=== PATIENT | female | born 1930 | race Caucasian/White ===

== ENCOUNTER 2017-03-24 14:52 | Inpatient (IN) | payer MEDICARE ==
--- NOTE | 2017-03-24 15:14 | ED Physician Chart ---
ED Chief Complaint/HPI - Patient Information Date Seen:: 03/24/17 Time Seen:: 15:09 Chief Complaint:: EDEMA History of Present Illness:: THIS IS A CHRONICALLY 87 YO FEMALE SENT FROM THE CARE HOME FOR AN EVALUATION AND TREATMENT OF HER EDEMA. SHE HAS HAD EDEMA FROM HER ABDOMEN DOWN TO BOTH FEET GREATER ON THE LEFT THAN HE RIGHT. SHE HAS A HISTORY OF ATRIAL FIB. SHE ALSO HAS MENTAL ILLNESS AND DEMENTIA. Allergies:: Allergies Allergy/AdvReac Type Severity Reaction Status Date / Time No Known Allergies Allergy Verified 03/24/17 14:53 Vitals:: Vital Signs - 8 hr 03/24/17 14:54 Temp 98.5 F HR 96 RR 17 BP 122/84 O2 Sat % 98 Historian:: EMS, Family Member, Medical Records Review:: Nurse's Note Reviewed, Old Chart Reviewed, Transfer documents Reviewed ED Review of Systems - Review of Systems General/Constitutional: No fever, No chills, No weight loss, No weakness, No diaphoresis, No edema, No loss of appetite, Other (THIS PATIENT IS UNABLE TO GIVE A REVIEW OF SYSTEMS.) Skin: No skin lesions, No rash, No bruising Head: No headache, No light-headedness Eyes: No loss of vision, No pain, No diplopia ENT: No earache, No nasal drainage, No sore throat, No tinnitus Neck: No neck pain, No swelling, No thyromegaly, No stiffness, No mass noted Cardio Vascular: No chest pain, No palpitations, No PND, No orthopnea, No edema Pulmonary: No SOB, No cough, No sputum, No wheezing GI: No nausea, No vomiting, No diarrhea, No pain, No melena, No hematochezia, No constipation, No hematemesis G/U: No dysuria, No frequency, No hematuria Musculoskeletal: No bone or joint pain, No back pain, No muscle pain Endocrine: No polyuria, No polydipsia Psychiatric: No prior psych history, No depression, No anxiety, No suicidal ideation Hematopoietic: No bruising, No lymphadenopathy Allergic/Immuno: No urticaria, No angioedema Neurological: No syncope, No focal symptoms, No weakness, No paresthesia, No headache, No seizure, No dizziness, No confusion, No vertigo ED Past Medical History - Past Medical History Obtainable: Yes Past Medical History: HTN, CAD, CHF, DVT/PE, Dementia, Other (COLON CA,) Family History: None Social History: Non Smoker, No Alcohol, No Drug Use, Care Facility Surgical History: Hysterectomy, other (COLON SURGERY) Family Medical History - Family Member Daughter History Unknown: Yes Hx Family Cancer: No Hx Family Coronary Artery Disease: No Hx Family Congestive Heart Failure: No Hx Family Hypertension: No Hx Family Stroke: No Hx Family Seizures: No Hx Family AIDS: No Hx Family HIV: No Hx Family COPD: No Hx Family Psychiatric Problems: No ED Physical Exam - Physical Examination General/Constitutional: Awake, Well-developed, well-nourished, Alert, No distress, GCS 15, Non-toxic appearing, Ambulatory Other Gen/Cons comments:: CONFUSED AND CANNOT TELL YOU HER AGE OR NAME Head: Atraumatic Eyes: Lids, conjuctiva normal, PERRL, EOMI Skin: Nl inspection, No rash, No skin lesions, No ecchymosis, Well hydrated, No lymphadenopathy ENMT: External ears, nose nl, Nasal exam nl, Lips, teeth, gums nl (POOR DENTAL REPAIR) Neck: Nontender, Full ROM w/o pain, No JVD, No nuchal rigidity, No bruit, No mass, No stridor Respiratory: Nl effort/Exclusion Other Respiratory comments:: BILATERAL RALES HEARD UP TO THE MID LUNG LEVEL Cardio Vascular: RRR (THE RATE AND RHYTM ARE IRREGULAR ), No murmur, gallop, rubs, NL S1 S2 GI: No tenderness/rebounding/guarding, No organomegaly, No hernia, Normal BS's, Nondistended, No mass/bruits, No McBurney tenderness : No CVA tenderness Extremities: No tenderness or effusion, Full ROM, normal strength in all extremities, Normal digits & nails Other Extremities comments:: BILATERAL 4+ EDEMA GREATER ON THE LEFT THAN THE RIGHT LOWER EXTREMITIES Neuro/Psych: DTR's symmetric, Normal sensory exam, Normal motor strength, Normal gait, No focal deficits Other Neuro/Psych comments:: SHE DISORIENTED TIMES FOUR AND IS CONFUSED Misc: Normal back, No paraspinal tenderness ED Labs/Radiology/EKG Results - Lab Results Results: Abnormal Lab Results 03/24/17 03/24/17 03/24/17 15:03 15:03 15:03 WBC 7.1 RBC 4.41 Hgb 13.5 Hct 41.4 MCV 93.9 MCH 30.6 MCHC Differential 32.6 RDW 15.9 Plt Count 135 L MPV 9.2 Neutrophils % 65.1 Lymphocytes % 23.8 Monocytes % 10.6 H Eosinophils % 0.4 Basophils % 0.1 PT 12.1 H INR 1.15 PTT (Actin FS) 22.7 L Specimen Source Sample Site pH pCO2 pO2 HCO3 Base Excess O2 Saturation Thanh Test Vent Rate Inspired O2 Tidal Volume PEEP Pressure (ins/psv/peep) Critical Value Sodium Potassium Chloride Carbon Dioxide Anion Gap BUN Creatinine Est GFR ( Amer) Est GFR (Non-Af Amer) BUN/Creatinine Ratio Glucose Calcium Total Bilirubin AST ALT Alkaline Phosphatase Troponin I B-Natriuretic Peptide Total Protein Albumin Globulin Albumin/Globulin Ratio Triglycerides 71 Cholesterol 134 LDL Cholesterol Direct 71 L HDL Cholesterol 56 Valproic Acid 03/24/17 03/24/17 03/24/17 15:03 15:09 15:09 WBC RBC Hgb Hct MCV MCH MCHC Differential RDW Plt Count MPV Neutrophils % Lymphocytes % Monocytes % Eosinophils % Basophils % PT INR PTT (Actin FS) Specimen Source Sample Site pH pCO2 pO2 HCO3 Base Excess O2 Saturation Thanh Test Vent Rate Inspired O2 Tidal Volume PEEP Pressure (ins/psv/peep) Critical Value Sodium 139 Potassium 4.5 Chloride 102 Carbon Dioxide 35.3 H Anion Gap 6.2 L BUN 21 Creatinine 0.6 Est GFR ( Amer) TNP Est GFR (Non-Af Amer) TNP BUN/Creatinine Ratio 35.0 Glucose 168 H Calcium 8.9 Total Bilirubin 0.7 AST 14 ALT 11 Alkaline Phosphatase 60 Troponin I 0.04 B-Natriuretic Peptide 506.0 H Total Protein 6.2 Albumin 3.8 Globulin 2.4 Albumin/Globulin Ratio 1.6 Triglycerides Cholesterol LDL Cholesterol Direct HDL Cholesterol Valproic Acid 03/24/17 03/24/17 15:09 15:20 WBC RBC Hgb Hct MCV MCH MCHC Differential RDW Plt Count MPV Neutrophils % Lymphocytes % Monocytes % Eosinophils % Basophils % PT INR PTT (Actin FS) Specimen Source Arterial Sample Site Left Radial pH 7.51 H pCO2 47.0 H pO2 69.0 L HCO3 34.9 H Base Excess 12.8 H O2 Saturation 95.0 Thanh Test YES Vent Rate NA Inspired O2 21 Tidal Volume NA PEEP NA Pressure (ins/psv/peep) NA Critical Value E.[place] Sodium Potassium Chloride Carbon Dioxide Anion Gap BUN Creatinine Est GFR ( Amer) Est GFR (Non-Af Amer) BUN/Creatinine Ratio Glucose Calcium Total Bilirubin AST ALT Alkaline Phosphatase Troponin I B-Natriuretic Peptide Total Protein Albumin Globulin Albumin/Globulin Ratio Triglycerides Cholesterol LDL Cholesterol Direct HDL Cholesterol Valproic Acid 64.6 - Radiology Results Results: CHEST X-RAY = CHF WITH BILATERAL PLEURAL EFFUSIONS AND CM. - EKG Interpretations EKG Time:: 15:02 Rate & Rhythm: RATE= 147, A FIB [place]: LEFT AXIS ED Assessment - Assessment General Assessment: CHF AND AF ED Septic Shock - . Is Septic Shock (SBP<90, OR Lactate>4 mmol\L) present?: No - <6hrs of presentation: Vital Signs: Vital Signs - 8 hr 03/24/17 14:54 Temp 98.5 F HR 96 RR 17 BP 122/84 O2 Sat % 98 ED Reassessment (Disposition) - Reassessment Reassessment Condition:: Improved - Diagnosis Diagnosis:: ATRIAL FIB WITH RAPID VENTICULAR RESPONSE CHF DEMENTIA - Patient Disposition Discharge/Transfer:: Acute Care w/in this hosp Admitted to:: Telemetry Admitting Medical Physician:: Lane Kaiser Condition at Disposition:: Improved ED Discharge Plan - Patient Disposition Admit/Discharge/Transfer: Acute Care w/in this hosp Condition at Disposition: Improved
[2017-03-24 15:16] LABS: % BASOPHILS 0.1 % (0.0-2.0); % EOSINOPHILS 0.4 % (0.0-5.0); % LYMPHOCYTES 23.8 % (20.0-50.0); % MONOCYTES 10.6 % (2.0-10.0); % NEUTROPHILS 65.1 % (40.0-80.0); HEMATOCRIT 41.4 % (41.0-60); HEMOGLOBIN 13.5 gm/dL (12-16); MEAN CELL VOLUME 93.9 fl (81-100); MEAN CORPUSCULAR HEMOGLOBIN 30.6 pg (27.0-31.0); MEAN CORPUSCULAR HGB CONC 32.6 pg (28.0-36.0); MEAN PLATELET VOLUME 9.2 fl; NEUTROPHILE ABSOLUTE 4.6 Th/cmm (1.8-8.0); PLATELET COUNT 135 Th/cmm (150-400); RED BLOOD COUNT 4.41 Mil/cmm (3.80-5.20); RED CELL DISTRIBUTION WIDTH 15.9 % (11.5-20.0); WHITE BLOOD COUNT 7.1 Th/cmm (4.8-10.8)
[2017-03-24] MEDS ORDERED: Diltiazem 5 mg/mL 5mL Vial IVP STA (15:21)
[2017-03-24] MEDS ORDERED: Diltiazem 5 mg/mL 5mL Vial IVP ONE (15:24)
[2017-03-24 15:30] LABS: ABG SOURCE Arterial; ALLEN TEST YES; BE(B) 12.8 mEq/L (-3.0-3.0); FIO2 21; HCO3 34.9 mEq/L (20.0-26.0); pH 7.51 (7.35-7.45)
[2017-03-24 15:33] LABS: INR 1.15 (0.5-1.4); PROTHROMBIN TIME (TEST) 12.1 SECONDS (9.5-11.5)
[2017-03-24 15:35] LABS: ALB/GLOB RATIO 1.6 (1.0-1.8); ALKALINE PHOSPHATASE 60 U/L (34-104); ANION GAP 6.2 (7.0-16.0); BILIRUBIN,TOTAL 0.7 mg/dL (0.3-1.0); BUN - UREA NITROGEN 21 mg/dL (7-25); CALCIUM SERUM 8.9 mg/dL (8.6-10.3); CARBON DIOXIDE 35.3 mEq/L (21.0-31.0); CHLORIDE 102 mEq/L (98-107); CREATININE - SERUM 0.6 mg/dL (0.6-1.2); GLUCOSE 168 mg/dL (70-105); POTASSIUM SERUM 4.5 mEq/L (3.5-5.1); SGOT 14 U/L (13-39); SGPT/ALT 11 U/L (7-52); SODIUM SERUM 139 mEq/L (136-145)
[2017-03-24 15:36] LABS: CHOLESTEROL 134 mg/dL (<200); TRIGLYCERIDES 71 mg/dL (<150)
--- NOTE | 2017-03-24 15:42 | Diagnostic Imaging Report ---
Portable chest x-ray HISTORY: Shortness of breath There is marked cardiomegaly. Atherosclerotic calcination seen in the aorta. Evidence of bilateral pleural effusions (left greater than right). There is a degree of pulmonary vascular redistribution consistent with an element of cardiac decompensation. Slight haziness of the lower interstitial lung markings. IMPRESSION: 1. Marked cardiomegaly with evidence of bilateral pleural effusions (left greater than right). Associated changes are consistent with a degree of congestive heart failure. Clinical correlation is needed.
[2017-03-24] MEDS ORDERED: Hydrocodone/APAP 5mg/325mg Tab PO PRN (16:41)
[2017-03-24] MEDS ORDERED: Morphine Sulfate 2 mg/mL 1mL Syr IVP PRN (16:42)
[2017-03-24 17:23] LABS: URINE BILIRUBIN NEGATIVE (NEGATIVE); URINE BLOOD TRACE (NEGATIVE); URINE GLUCOSE (UA) NEGATIVE (NEGATIVE); URINE KETONE NEGATIVE (NEGATIVE); URINE PROTEIN TRACE mg/dL (NEGATIVE)
[2017-03-24 17:27] LABS: URINE COLOR YELLOW
[2017-03-24 17:28] LABS: URINE AMORPHOUS SEDIMENT MODERATE URATES (NONE SEEN); URINE BACTERIA MANY /hpf (NONE SEEN); URINE EPITHELIAL CELLS FEW /lpf (FEW)
[2017-03-24 18:45] VITALS: BP 126/85
[2017-03-24] MEDS: Albuterol Nebulizer 2.5mg/3mL HHN SCH (19:07)
[2017-03-24] MEDS: Ipratropium Neb 0.5 mg/2.5 mL UD IH SCH (19:08)
[2017-03-24] MEDS: Diltiazem 5 mg/mL 5mL Vial IVP PRN (20:20)
[2017-03-25] MEDS: Diltiazem 5 mg/mL 5mL Vial IVP PRN ×2 (00:54→19:31)
[2017-03-25 05:10] LABS: ANION GAP 7.4 (7.0-16.0); BUN - UREA NITROGEN 19 mg/dL (7-25); BUN/CREATININE RATIO 31.7; CALCIUM SERUM 8.7 mg/dL (8.6-10.3); CARBON DIOXIDE 35.6 mEq/L (21.0-31.0); CHLORIDE 102 mEq/L (98-107); CREATININE - SERUM 0.6 mg/dL (0.6-1.2); GLUCOSE 176 mg/dL (70-105); MAGNESIUM 1.8 mg/dL (1.9-2.7); SODIUM SERUM 141 mEq/L (136-145)
[2017-03-25] MEDS: Albuterol Nebulizer 2.5mg/3mL HHN SCH ×4 (07:36→18:59)
[2017-03-25] MEDS: Ipratropium Neb 0.5 mg/2.5 mL UD IH SCH ×4 (07:36→19:00)
[2017-03-25] MEDS: Potassium Chloride 20 mEq ER Tab PO SCH (08:32)
[2017-03-25] MEDS ORDERED: Non-Formulary Item 1 EA (Potassium Chloride [Potassium Chloride] 1 CAP) PO SCH (09:00)
--- NOTE | 2017-03-25 11:22 | Internal Medicine Prog Note ---
Internal Medicine Subjective - Subjective Service Date: 03/25/17 (hn dictated [id number]) Internal Medicine Objective - Results Result Diagrams: 03/24/17 15:03 03/25/17 04:27 Recent Labs: Laboratory Last Values WBC 7.1 Th/cmm (4.8-10.8) 03/24/17 15:03 RBC 4.41 Mil/cmm (3.80-5.20) 03/24/17 15:03 Hgb 13.5 gm/dL (12-16) 03/24/17 15:03 Hct 41.4 % (41.0-60) 03/24/17 15:03 MCV 93.9 fl (81-100) 03/24/17 15:03 MCH 30.6 pg (27.0-31.0) 03/24/17 15:03 MCHC Differential 32.6 pg (28.0-36.0) 03/24/17 15:03 RDW 15.9 % (11.5-20.0) 03/24/17 15:03 Plt Count 135 Th/cmm (150-400) L 03/24/17 15:03 MPV 9.2 fl 03/24/17 15:03 Neutrophils % 65.1 % (40.0-80.0) 03/24/17 15:03 Lymphocytes % 23.8 % (20.0-50.0) 03/24/17 15:03 Monocytes % 10.6 % (2.0-10.0) H 03/24/17 15:03 Eosinophils % 0.4 % (0.0-5.0) 03/24/17 15:03 Basophils % 0.1 % (0.0-2.0) 03/24/17 15:03 PT 12.1 SECONDS (9.5-11.5) H 03/24/17 15:03 INR 1.15 (0.5-1.4) 03/24/17 15:03 PTT (Actin FS) 22.7 SECONDS (26.0-38.0) L 03/24/17 15:03 Specimen Source Arterial 03/24/17 15:20 Sample Site Left Radial 03/24/17 15:20 pH 7.51 (7.35-7.45) H 03/24/17 15:20 pCO2 47.0 mmHg (35.0-45.0) H 03/24/17 15:20 pO2 69.0 mmHg (80.0-100.0) L 03/24/17 15:20 HCO3 34.9 mEq/L (20.0-26.0) H 03/24/17 15:20 Base Excess 12.8 mEq/L (-3.0-3.0) H 03/24/17 15:20 O2 Saturation 95.0 % (92.0-100.0) 03/24/17 15:20 Thanh Test YES 03/24/17 15:20 Vent Rate NA 03/24/17 15:20 Inspired O2 21 03/24/17 15:20 Tidal Volume NA 03/24/17 15:20 PEEP NA 03/24/17 15:20 Pressure (ins/psv/peep) NA 03/24/17 15:20 Critical Value E.[place] 03/24/17 15:20 Sodium 141 mEq/L (136-145) 03/25/17 04:27 Potassium 4.0 mEq/L (3.5-5.1) 03/25/17 04:27 Chloride 102 mEq/L (98-107) 03/25/17 04:27 Carbon Dioxide 35.6 mEq/L (21.0-31.0) H 03/25/17 04:27 Anion Gap 7.4 (7.0-16.0) 03/25/17 04:27 BUN 19 mg/dL (7-25) 03/25/17 04:27 Creatinine 0.6 mg/dL (0.6-1.2) 03/25/17 04:27 Est GFR ( Amer) TNP 03/25/17 04:27 Est GFR (Non-Af Amer) TNP 03/25/17 04:27 BUN/Creatinine Ratio 31.7 03/25/17 04:27 Glucose 176 mg/dL (70-105) H 03/25/17 04:27 Hemoglobin A1c % 7.0 % (4.0-6.0) H 03/24/17 15:03 Calcium 8.7 mg/dL (8.6-10.3) 03/25/17 04:27 Magnesium 1.8 mg/dL (1.9-2.7) L 03/25/17 04:27 Total Bilirubin 0.7 mg/dL (0.3-1.0) 03/24/17 15:09 AST 14 U/L (13-39) 03/24/17 15:09 ALT 11 U/L (7-52) 03/24/17 15:09 Alkaline Phosphatase 60 U/L (34-104) 03/24/17 15:09 Ammonia 42 umol/L (16-53) 03/25/17 04:27 Troponin I 0.04 ng/mL (0.01-0.05) 03/24/17 15:09 B-Natriuretic Peptide 506.0 pg/mL (5.0-100.0) H 03/24/17 15:03 Total Protein 6.2 gm/dL (6.0-8.3) 03/24/17 15:09 Albumin 3.8 gm/dL (3.7-5.3) 03/24/17 15:09 Globulin 2.4 gm/dL 03/24/17 15:09 Albumin/Globulin Ratio 1.6 (1.0-1.8) 03/24/17 15:09 Triglycerides 71 mg/dL (<150) 03/24/17 15:03 Cholesterol 134 mg/dL (<200) 03/24/17 15:03 LDL Cholesterol Direct 71 mg/dL (75-193) L 03/24/17 15:03 HDL Cholesterol 56 mg/dL (23-92) 03/24/17 15:03 TSH 5.07 uIU/ml (0.34-5.60) 03/24/17 15:09 Urine Source CLEAN C 03/24/17 16:15 Urine Color YELLOW 03/24/17 16:15 Urine Clarity CLOUDY (CLEAR) H 03/24/17 16:15 Urine pH 7.0 (4.6 - 8.0) 03/24/17 16:15 Ur Specific [place] 1.015 (1.005-1.030) 03/24/17 16:15 Urine Protein TRACE mg/dL (NEGATIVE) 03/24/17 16:15 Urine Glucose (UA) NEGATIVE mg/dL (NEGATIVE) 03/24/17 16:15 Urine Ketones NEGATIVE mg/dL (NEGATIVE) 03/24/17 16:15 Urine Blood TRACE (NEGATIVE) 03/24/17 16:15 Urine Nitrate POSITIVE (NEGATIVE) H 03/24/17 16:15 Urine Bilirubin NEGATIVE (NEGATIVE) 03/24/17 16:15 Urine Urobilinogen 1.0 E.U./dL (0.2 - 1.0) 03/24/17 16:15 Ur Leukocyte Esterase MODERATE (NEGATIVE) H 03/24/17 16:15 Urine RBC 2-5 /hpf (0-5) 03/24/17 16:15 Urine WBC 6-10 /hpf (0-5) H 03/24/17 16:15 Ur Epithelial Cells FEW /lpf (FEW) 03/24/17 16:15 Amorphous Sediment MODERATE URATES (NONE SEEN) 03/24/17 16:15 Urine Bacteria MANY /hpf (NONE SEEN) 03/24/17 16:15 Valproic Acid 64.6 ug/mL (50.0-100.0) 03/24/17 15:09 RPR NONREACTIVE (NONREACTIVE) 03/24/17 15:09 - Physical Exam Vitals and I&O: Vital Signs Temp 98.6 F 03/25/17 09:00 Pulse 87 03/25/17 09:00 Resp 18 03/25/17 09:00 BP 108/72 03/25/17 09:00 Pulse Ox 96 03/25/17 09:00 Intake & Output 03/24/17 03/25/17 03/25/17 18:59 06:59 18:59 Intake Total 370 Output Total 2280 Balance -1910 Weight (lbs) 187 lb 187 lb Intake: Oral 370 Output: Urine 2280 Other: # Bowel Movements 0 Active Medications: Current Medications Acetaminophen (Tylenol) 650 mg PO Q4HR PRN PRN Reason: Pain (Mild) Stop: 05/23/17 16:40 Acetaminophen/Hydrocodone Bitart ([place] 5mg/325mg) 1 tab PO TID PRN PRN Reason: Pain (Moderate) Stop: 05/23/17 16:40 Last Admin: 03/25/17 01:22 Dose: 1 tab Albuterol Sulfate (Albuterol 2.5mg/3ml Neb Ud) 2.5 mg HHN QIDRT [facility] Stop: 05/23/17 18:59 Last Admin: 03/25/17 10:55 Dose: 2.5 mg Aspirin (Ecotrin) 81 mg PO DAILY [facility] Stop: 05/24/17 08:59 Last Admin: 03/25/17 08:32 Dose: 81 mg Diltiazem HCl (Cardizem) 10 mg IVP Q4H PRN PRN Reason: HR Greater than 130 per min Stop: 05/23/17 16:41 Last Admin: 03/25/17 00:54 Dose: 10 mg Furosemide (Lasix) 40 mg IVP BID [facility] Stop: 05/23/17 16:59 Last Admin: 03/25/17 08:31 Dose: 40 mg Haloperidol (Haldol) 2 mg PO Q6HR PRN; Protocol PRN Reason: Agitation Stop: 05/23/17 16:40 Heparin Sodium (Porcine) (Heparin) 5,000 units SUBQ Q12HR [facility] Stop: 05/23/17 20:59 Last Admin: 03/25/17 08:33 Dose: 5,000 units Ipratropium [place] (Atrovent Neb 0.5mg/2.5ml) 0.5 mg IH QIDRT [facility] Stop: 05/23/17 18:59 Last Admin: 03/25/17 10:55 Dose: 0.5 mg Morphine Sulfate (Morphine) 2 mg IVP Q4H PRN PRN Reason: Severe Pain Stop: 05/23/17 16:41 Last Admin: 03/24/17 21:26 Dose: 2 mg Ondansetron HCl (Zofran) 4 mg IV Q8H PRN PRN Reason: Nausea / Vomiting Stop: 05/23/17 16:41 Potassium Chloride (Klor-Con) 20 meq PO DAILY [facility] Stop: 05/24/17 08:59 Last Admin: 03/25/17 08:32 Dose: 20 meq Quetiapine Fumarate (Seroquel) 25 mg PO BID [facility] PRN Reason: Protocol Stop: 05/24/17 08:59 Senna (Senna) 8.6 mg PO BID [facility] Stop: 05/23/17 16:59 Last Admin: 03/25/17 08:32 Dose: 8.6 mg Valproate Sodium (Depakene) 500 mg PO TID [facility] Stop: 05/23/17 20:59 Internal Medicine Assmt/Plan - Assessment Assessment: ACUTE CHF EXACERBATION DEMENTIA HTN HYPOMAGNESEMIA A-FIB WITH RAPID VENTRICULAR RESPONSE ACUTE UTI HX COLON CA
[2017-03-25] MEDS: cefTRIAXone 1 GM in Sodium Chloride 0.9% 50 ML IV SCH (11:46)
--- NOTE | 2017-03-25 12:12 | History & Physical ---
ADMIT DATE: 03/25/2017 CHIEF COMPLAINT: Bilateral lower extremity edema. HISTORY OF PRESENT ILLNESS: This is an 87-year-old female who is a resident of [facility], who is brought here to [facility] for evaluation and treatment of bilateral lower extremity edema. The patient is a poor historian. PAST MEDICAL HISTORY: Colon cancer, status post resection, dementia, hypertension, lymphoma, status post excision and chemotherapy, chronic AFib, recurrent falls, GI bleed, CHF. PAST SURGICAL HISTORY: Hysterectomy, colon cancer resection, lymphoma excision. FAMILY HISTORY: Noncontributory. REVIEW OF SYSTEMS: Unable to obtain due to patient's mental status. ALLERGIES: No drug allergies. MEDICATIONS: Haldol, Tylenol, morphine, Lasix, Zyprexa, hydrocodone, potassium chloride, Senna, and valproic acid. LABORATORY DATA: WBC 7.1, H and H 13.5 and 41.4, platelet of 135. PT 12.1, INR 1.15, PTT 22.7. ABG, pH 7.51, CO2 of 47.0, pO2 69.0, bicarb 34.9, O2 sat of 95%. Sodium 141, potassium 4.0, chloride 102, carbon dioxide 35.6, BUN 19, creatinine 0.6, hemoglobin A1c is 7.0, magnesium 1.8. BNP of 506. The patient had a urinalysis done. The patient is positive for UTI. The patient had a chest x-ray done in the ER and the impression is marked cardiomegaly with evidence of bilateral pleural effusions, ____ greater than ____, associated changes consistent with the degrees of congestive heart failure, clinical correlation is needed. ASSESSMENT: Acute congestive heart failure exacerbation, atrial fibrillation with rapid ventricular response, hypertension, dementia, history of colon cancer, hypomagnesemia, type 2 diabetes, acute urinary tract infection. PLAN: The patient to be admitted to the ICU unit. The patient will have a Cardiology consult. We will get bilateral lower extremity venous Doppler done to rule out any DVT, 2D echocardiogram as ordered by Cardiology. We will continue patient on IV Lasix. Monitor patient's electrolytes level. We will continue to follow this patient. [facility]# [id number]
[2017-03-25] MEDS ORDERED: Mag Sulfate 2gm/50mL Premix 2 GM/50 ML BAG IV ONE (15:32)
--- NOTE | 2017-03-25 20:15 | Consultation ---
DATE OF CONSULTATION: 03/25/2017 HISTORY OF PRESENT ILLNESS: This is an 87-year-old female with rapid ventricular response, AFib, currently confused, disoriented, really does not know what is going on. Staff noting that she has been needing Haldol p.r.n., but it is not helping. The patient states that she is in distress and it does not feel good. PAST PSYCHIATRIC HISTORY: Unclear. FAMILY HISTORY: Unclear. SOCIAL HISTORY: The patient is coming from a alf. Daughter involved. MEDICATIONS: Reviewed. PAST MEDICAL HISTORY: Please see full H and P. MENTAL STATUS EXAMINATION: Stated age. Fair eye contact. Psychomotorically restless. Mood is "okay." Thought processes were confused, disoriented. No overt SI or HI. Unclear psychotic symptoms, poor impulse control. PROVISIONAL DIAGNOSIS: Psychosis, unspecified, likely delirium. Mood, unspecified. Anxiety, unspecified. MEDICAL DIAGNOSIS: Please see full H and P. PLAN: We will reach out to daughter. We will switch her from Haldol to Seroquel. We will continue to monitor and follow up. Also recommend more judicious use of opiates. The patient is currently on Zyprexa. We will discharge this in favor of Seroquel. [facility]# [id number]
[2017-03-26 05:24] LABS: % BASOPHILS 0.8 % (0.0-2.0); % EOSINOPHILS 1.7 % (0.0-5.0); % LYMPHOCYTES 41.8 % (20.0-50.0); % MONOCYTES 12.9 % (2.0-10.0); % NEUTROPHILS 42.8 % (40.0-80.0); HEMATOCRIT 40.5 % (41.0-60); HEMOGLOBIN 13.1 gm/dL (12-16); MEAN CELL VOLUME 94.6 fl (81-100); MEAN CORPUSCULAR HEMOGLOBIN 30.6 pg (27.0-31.0); MEAN CORPUSCULAR HGB CONC 32.4 pg (28.0-36.0); MEAN PLATELET VOLUME 9.3 fl; NEUTROPHILE ABSOLUTE 2.4 Th/cmm (1.8-8.0); PLATELET COUNT 127 Th/cmm (150-400); RED BLOOD COUNT 4.28 Mil/cmm (3.80-5.20); RED CELL DISTRIBUTION WIDTH 15.7 % (11.5-20.0)
[2017-03-26 05:37] LABS: WHITE BLOOD COUNT 5.5 Th/cmm (4.8-10.8)
[2017-03-26 05:49] LABS: ANION GAP 5.5 (7.0-16.0); BUN - UREA NITROGEN 18 mg/dL (7-25); CALCIUM SERUM 8.6 mg/dL (8.6-10.3); CARBON DIOXIDE 39.8 mEq/L (21.0-31.0); CHLORIDE 102 mEq/L (98-107); CHOLESTEROL 113 mg/dL (<200); CREATININE - SERUM 0.6 mg/dL (0.6-1.2); GLUCOSE 76 mg/dL (70-105); POTASSIUM SERUM 4.3 mEq/L (3.5-5.1); SODIUM SERUM 143 mEq/L (136-145); TRIGLYCERIDES 59 mg/dL (<150)
[2017-03-26] MEDS: Ipratropium Neb 0.5 mg/2.5 mL UD IH SCH ×4 (07:38→18:56)
[2017-03-26] MEDS: Albuterol Nebulizer 2.5mg/3mL HHN SCH ×4 (07:38→18:56)
[2017-03-26] MEDS: Potassium Chloride 20 mEq ER Tab PO SCH (09:20)
[2017-03-26] MEDS: Diltiazem 5 mg/mL 5mL Vial IVP PRN ×2 (10:09→16:48)
--- NOTE | 2017-03-26 10:14 | Diagnostic Imaging Report ---
Exam: Ultrasound examination deep venous circulation lower extremity bilaterally. HISTORY: Bilateral lower leg swelling Findings: Real-time ultrasound examination of the deep venous circulation lower extremities bilaterally was performed utilizing color Doppler technique. The study demonstrates deep venous thrombosis of the right common femoral vein. The right superficial femoral vein and popliteal vein and the vessel does evocation are normal compressibility and. The left lower extremity demonstrates no evidence of deep venous thrombosis with normal segmentation compressibility throughout. IMPRESSION: Diffuse thrombosis right common femoral vein, the nurses station was notified of findings.
[2017-03-26] MEDS: cefTRIAXone 1 GM in Sodium Chloride 0.9% 50 ML IV SCH (11:30)
[2017-03-26] MEDS ORDERED: Probiotic Screen MC PRN (13:15)
--- NOTE | 2017-03-26 17:13 | Internal Medicine Prog Note ---
Internal Medicine Subjective - Subjective Service Date: 03/26/17 Internal Medicine Objective - Results Result Diagrams: 03/26/17 05:00 03/26/17 05:00 Recent Labs: Laboratory Last Values WBC 5.5 Th/cmm (4.8-10.8) D 03/26/17 05:00 RBC 4.28 Mil/cmm (3.80-5.20) 03/26/17 05:00 Hgb 13.1 gm/dL (12-16) 03/26/17 05:00 Hct 40.5 % (41.0-60) L 03/26/17 05:00 MCV 94.6 fl (81-100) 03/26/17 05:00 MCH 30.6 pg (27.0-31.0) 03/26/17 05:00 MCHC Differential 32.4 pg (28.0-36.0) 03/26/17 05:00 RDW 15.7 % (11.5-20.0) 03/26/17 05:00 Plt Count 127 Th/cmm (150-400) L 03/26/17 05:00 MPV 9.3 fl 03/26/17 05:00 Neutrophils % 42.8 % (40.0-80.0) 03/26/17 05:00 Lymphocytes % 41.8 % (20.0-50.0) 03/26/17 05:00 Monocytes % 12.9 % (2.0-10.0) H 03/26/17 05:00 Eosinophils % 1.7 % (0.0-5.0) 03/26/17 05:00 Basophils % 0.8 % (0.0-2.0) 03/26/17 05:00 PT 12.1 SECONDS (9.5-11.5) H 03/24/17 15:03 INR 1.15 (0.5-1.4) 03/24/17 15:03 PTT (Actin FS) 22.7 SECONDS (26.0-38.0) L 03/24/17 15:03 Specimen Source Arterial 03/24/17 15:20 Sample Site Left Radial 03/24/17 15:20 pH 7.51 (7.35-7.45) H 03/24/17 15:20 pCO2 47.0 mmHg (35.0-45.0) H 03/24/17 15:20 pO2 69.0 mmHg (80.0-100.0) L 03/24/17 15:20 HCO3 34.9 mEq/L (20.0-26.0) H 03/24/17 15:20 Base Excess 12.8 mEq/L (-3.0-3.0) H 03/24/17 15:20 O2 Saturation 95.0 % (92.0-100.0) 03/24/17 15:20 Thanh Test YES 03/24/17 15:20 Vent Rate NA 03/24/17 15:20 Inspired O2 21 03/24/17 15:20 Tidal Volume NA 03/24/17 15:20 PEEP NA 03/24/17 15:20 Pressure (ins/psv/peep) NA 03/24/17 15:20 Critical Value E.HAMPTON 03/24/17 15:20 Sodium 143 mEq/L (136-145) 03/26/17 05:00 Potassium 4.3 mEq/L (3.5-5.1) 03/26/17 05:00 Chloride 102 mEq/L (98-107) 03/26/17 05:00 Carbon Dioxide 39.8 mEq/L (21.0-31.0) H 03/26/17 05:00 Anion Gap 5.5 (7.0-16.0) L 03/26/17 05:00 BUN 18 mg/dL (7-25) 03/26/17 05:00 Creatinine 0.6 mg/dL (0.6-1.2) 03/26/17 05:00 Est GFR ( Amer) TNP 03/26/17 05:00 Est GFR (Non-Af Amer) TNP 03/26/17 05:00 BUN/Creatinine Ratio 30.0 03/26/17 05:00 Glucose 76 mg/dL (70-105) 03/26/17 05:00 Hemoglobin A1c % 7.0 % (4.0-6.0) H 03/24/17 15:03 Calcium 8.6 mg/dL (8.6-10.3) 03/26/17 05:00 Magnesium 1.8 mg/dL (1.9-2.7) L 03/25/17 04:27 Total Bilirubin 0.7 mg/dL (0.3-1.0) 03/24/17 15:09 AST 14 U/L (13-39) 03/24/17 15:09 ALT 11 U/L (7-52) 03/24/17 15:09 Alkaline Phosphatase 60 U/L (34-104) 03/24/17 15:09 Ammonia 42 umol/L (16-53) 03/25/17 04:27 Troponin I 0.04 ng/mL (0.01-0.05) 03/24/17 15:09 B-Natriuretic Peptide 429.0 pg/mL (5.0-100.0) H 03/26/17 05:00 Total Protein 6.2 gm/dL (6.0-8.3) 03/24/17 15:09 Albumin 3.8 gm/dL (3.7-5.3) 03/24/17 15:09 Globulin 2.4 gm/dL 03/24/17 15:09 Albumin/Globulin Ratio 1.6 (1.0-1.8) 03/24/17 15:09 Triglycerides 59 mg/dL (<150) 03/26/17 05:00 Cholesterol 113 mg/dL (<200) 03/26/17 05:00 LDL Cholesterol Direct 69 mg/dL (75-193) L 03/26/17 05:00 HDL Cholesterol 47 mg/dL (23-92) 03/26/17 05:00 TSH 5.07 uIU/ml (0.34-5.60) 03/24/17 15:09 Urine Source CLEAN C 03/24/17 16:15 Urine Color YELLOW 03/24/17 16:15 Urine Clarity CLOUDY (CLEAR) H 03/24/17 16:15 Urine pH 7.0 (4.6 - 8.0) 03/24/17 16:15 Ur Specific [place] 1.015 (1.005-1.030) 03/24/17 16:15 Urine Protein TRACE mg/dL (NEGATIVE) 03/24/17 16:15 Urine Glucose (UA) NEGATIVE mg/dL (NEGATIVE) 03/24/17 16:15 Urine Ketones NEGATIVE mg/dL (NEGATIVE) 03/24/17 16:15 Urine Blood TRACE (NEGATIVE) 03/24/17 16:15 Urine Nitrate POSITIVE (NEGATIVE) H 03/24/17 16:15 Urine Bilirubin NEGATIVE (NEGATIVE) 03/24/17 16:15 Urine Urobilinogen 1.0 E.U./dL (0.2 - 1.0) 03/24/17 16:15 Ur Leukocyte Esterase MODERATE (NEGATIVE) H 03/24/17 16:15 Urine RBC 2-5 /hpf (0-5) 03/24/17 16:15 Urine WBC 6-10 /hpf (0-5) H 03/24/17 16:15 Ur Epithelial Cells FEW /lpf (FEW) 03/24/17 16:15 Amorphous Sediment MODERATE URATES (NONE SEEN) 03/24/17 16:15 Urine Bacteria MANY /hpf (NONE SEEN) 03/24/17 16:15 Valproic Acid 64.6 ug/mL (50.0-100.0) 03/24/17 15:09 RPR NONREACTIVE (NONREACTIVE) 03/24/17 15:09 - Physical Exam Vitals and I&O: Vital Signs Temp 97.4 F 03/26/17 13:00 Pulse 150 03/26/17 16:48 Resp 22 03/26/17 15:05 BP 111/67 03/26/17 15:00 Pulse Ox 96 03/26/17 15:05 Intake & Output 03/25/17 03/26/17 03/26/17 18:59 06:59 18:59 Intake Total 410.000 100 50 Output Total 1500 850 Balance -1090.000 -750 50 Weight (lbs) 187 lb 185 lb Intake: Intake, IV Amount 50.000 50 cefTRIAXone 1 gm In 50.000 50 Sodium Chloride 0.9% 50 ml @ 100 mls/hr IV Q24HR [facility] Rx#:[id number] Oral 360 100 Output: Urine 1500 850 Stool 0 Active Medications: Current Medications Acetaminophen (Tylenol) 650 mg PO Q4HR PRN PRN Reason: Pain (Mild) Stop: 05/23/17 16:40 Last Admin: 03/25/17 20:38 Dose: 650 mg Acetaminophen/Hydrocodone Bitart ([place] 5mg/325mg) 1 tab PO TID PRN PRN Reason: Pain (Moderate) Stop: 05/23/17 16:40 Last Admin: 03/25/17 01:22 Dose: 1 tab Albuterol Sulfate (Albuterol 2.5mg/3ml Neb Ud) 2.5 mg HHN QIDRT [facility] Stop: 05/23/17 18:59 Last Admin: 03/26/17 15:03 Dose: 2.5 mg Aspirin (Ecotrin) 81 mg PO DAILY [facility] Stop: 05/24/17 08:59 Last Admin: 03/26/17 09:20 Dose: 81 mg Diltiazem HCl (Cardizem) 10 mg IVP Q4H PRN PRN Reason: HR Greater than 130 per min Stop: 05/23/17 16:41 Last Admin: 03/26/17 16:48 Dose: 10 mg Diltiazem HCl (Cardizem) 30 mg PO Q6HR [facility] Stop: 05/25/17 17:59 Furosemide (Lasix) 40 mg IVP DAILY [facility] Stop: 05/25/17 08:59 Last Admin: 03/26/17 09:20 Dose: 40 mg Haloperidol (Haldol) 2 mg PO Q6HR PRN; Protocol PRN Reason: Agitation Stop: 05/23/17 16:40 Last Admin: 03/26/17 15:09 Dose: 2 mg Heparin Sodium (Porcine) (Heparin) 5,000 units SUBQ Q12HR [facility] Stop: 05/23/17 20:59 Last Admin: 03/26/17 09:20 Dose: 5,000 units Ceftriaxone Sodium 1 gm/ (Sodium Chloride) 50 mls @ 100 mls/hr IV Q24HR [facility] Stop: 05/24/17 11:29 Last Infusion: 03/26/17 12:30 Dose: Infused Ipratropium [place] (Atrovent Neb 0.5mg/2.5ml) 0.5 mg IH QIDRT [facility] Stop: 05/23/17 18:59 Last Admin: 03/26/17 15:03 Dose: 0.5 mg Lactobacillus Rhamnosus (Culturelle) 1 each PO DAILY [facility] Stop: 05/26/17 08:59 Miscellaneous (Probiotic Screen) 1 ea MC PRN PRN PRN Reason: PROTOCOL Stop: 05/25/17 13:14 Morphine Sulfate (Morphine) 2 mg IVP Q4H PRN PRN Reason: Severe Pain Stop: 05/23/17 16:41 Last Admin: 03/24/17 21:26 Dose: 2 mg Ondansetron HCl (Zofran) 4 mg IV Q8H PRN PRN Reason: Nausea / Vomiting Stop: 05/23/17 16:41 Potassium Chloride (Klor-Con) 20 meq PO DAILY [facility] Stop: 05/24/17 08:59 Last Admin: 03/26/17 09:20 Dose: 20 meq Quetiapine Fumarate (Seroquel) 25 mg PO BID [facility] PRN Reason: Protocol Stop: 05/24/17 08:59 Last Admin: 03/26/17 09:20 Dose: 25 mg Rivaroxaban (Xarelto) 20 mg PO DAILY [facility] Stop: 05/26/17 08:59 Senna (Senna) 8.6 mg PO BID [facility] Stop: 05/23/17 16:59 Last Admin: 03/26/17 09:19 Dose: 8.6 mg Valproate Sodium (Depakene) 250 mg PO TID [facility] Stop: 05/23/17 20:59 Last Admin: 03/26/17 14:46 Dose: 250 mg Internal Medicine Assmt/Plan - Assessment Assessment: RIGHT LOWER EXTREMITY DVT ACUTE CHF EXACERBATION DEMENTIA HTN HYPOMAGNESEMIA A-FIB WITH RAPID VENTRICULAR RESPONSE ACUTE UTI HX COLON CA - Plan Plan: CONTINUE WITH HEPARIN ICU MONITORING DIURESE AM LABS CARDIO F/U CONTINUE CURRENT TREATMENT
[2017-03-26] MEDS: Diltiazem 30 mg Tab PO SCH ×2 (17:54→23:50)
--- NOTE | 2017-03-26 18:20 | Cardiology ---
03/25/[address] Kaiser. M-MODE ECHOCARDIOGRAM: Mitral valve, anterior leaflet of mitral valve shows decreased excursion, EF velocity. Posterior leaflet of mitral valve shows decreased excursion. Left ventricle posterior wall shows increased thickness, normal excursion. Interventricular septum shows increased thickness, normal excursion, hypertrophy of the left ventricle, ejection fraction 25%. Left atrium enlarged 5.5 cm. Aortic root showed normal dimension, sclerosis of aortic leaflets. CONCLUSION: Left atrial enlargement, sclerosis of aortic leaflets, cardiomyopathy, ejection fraction 25%, hypertrophy of the left ventricle. 2D ECHO: Long axis view shows enlarged left ventricular cavity with decreased ejection fraction. Mitral valve shows decreased excursion, left atrium enlarged, aortic root shows normal dimensions, sclerosis of aortic leaflets, normal excursion. Short axis view of mitral valve normal. Short axis view of aortic valve shows sclerosis of aortic leaflets, normal excursion. Apical four chamber view shows enlarged left ventricular cavity with decreased ejection fraction, hypertrophy of the left ventricle. Left atrium enlarged 5.5 cm. Right ventricular cavity, right atrium normal. CONCLUSION: Left atrial enlargement, right atrial enlargement, hypertrophy of the left ventricle, cardiomyopathy, ejection fraction 25%, sclerosis of aortic leaflet. Doppler study shows prominent A wave consistent with poor compliance of left ventricle. Moderate mitral regurgitation, moderate triscuspid regurgitation, mild aortic regurgitation, mild pulmonary regurgitation, moderate pulmonary hypertension, right ventricular systolic pressure 58 mmHg, pleural effusion. JOB# [id number]
--- NOTE | 2017-03-26 22:21 | Consultation ---
DATE OF CONSULTATION: 03/26/[address] Kaiser. HISTORY AND PHYSICAL: This is an 87-year-old female patient who was brought to the Emergency Room from [facility] because of shortness of breath, swelling in both lower extremities. No history of chest pain. The patient is confused and dementia. PAST MEDICAL HISTORY: The patient has a history of colon cancer status post resection, dementia, hypertension, lymphoma with excision and chemotherapy, chronic atrial fibrillation, congestive heart failure, cardiomyopathy, moderate pulmonary hypertension, psychosis, and diabetes mellitus type 2. FAMILY HISTORY: Unremarkable. SOCIAL HISTORY: No history of smoking, alcohol abuse. ALLERGIES: No known allergies. PHYSICAL EXAMINATION: VITAL SIGNS: Blood pressure 130/80, pulse 120 irregular, and respirations 28. HEAD: Normocephalic. No lumps or bumps. EYES: Pupils are equal and reactive to light. Fundi show AV nicking, sclerae white, conjunctivae pink. NECK: Carotid 2+. Normal upstroke. JVD 10 cm above the sternal angle. Thyroid not palpable. Lymph nodes not palpable. CHEST: Shows increased AP diameter. No kyphosis or scoliosis. LUNGS: Bilateral rales. Decreased breath sounds in both the bases. HEART: PMI sixth intercostal space with lateral to midclavicular line. S1, S2, S3, S4. S1 irregular. Systolic murmur, grade 3/6, lower left sternal border radiating to left axilla. ABDOMEN: Soft. Liver and spleen not palpable. No organomegaly. Hepatojugular reflux positive. EXTREMITIES: Peripheral pulses feeble. Bilateral pedal edema. IMAGING: The patient also had an echocardiogram which showed left atrial enlargement, right atrial enlargement, ejection fraction 25%, moderate mitral regurgitation, moderate tricuspid regurgitation, moderate pulmonary hypertension, right ventricular systolic pressure of 58 mmHg, and pleural effusion. DIAGNOSES: Congestive heart failure, systolic dysfunction, acute atrial fibrillation, rate uncontrolled, bilateral pleural effusion, diabetes mellitus type 2, dementia, hypomagnesium, nonischemic cardiomyopathy, moderate pulmonary hypertension, right leg DVT, psychosis, colon cancer status post resection, lymphoma status post chemotherapy. PLAN: We will start the patient on diuretics, preload and afterload reduction, continue anticoagulation and control the heart rate. [facility]# [id number]
[2017-03-27 06:21] LABS: % BASOPHILS 0.7 % (0.0-2.0); % EOSINOPHILS 1.8 % (0.0-5.0); % LYMPHOCYTES 31.2 % (20.0-50.0); % MONOCYTES 13.5 % (2.0-10.0); % NEUTROPHILS 52.8 % (40.0-80.0); HEMATOCRIT 37.9 % (41.0-60); HEMOGLOBIN 12.5 gm/dL (12-16); MEAN CELL VOLUME 93.2 fl (81-100); MEAN CORPUSCULAR HEMOGLOBIN 30.8 pg (27.0-31.0); MEAN CORPUSCULAR HGB CONC 33.1 pg (28.0-36.0); MEAN PLATELET VOLUME 8.7 fl; NEUTROPHILE ABSOLUTE 2.9 Th/cmm (1.8-8.0); PLATELET COUNT 127 Th/cmm (150-400); RED BLOOD COUNT 4.07 Mil/cmm (3.80-5.20); RED CELL DISTRIBUTION WIDTH 15.4 % (11.5-20.0); WHITE BLOOD COUNT 5.4 Th/cmm (4.8-10.8)
[2017-03-27 06:50] LABS: ANION GAP 5.2 (7.0-16.0); BUN - UREA NITROGEN 19 mg/dL (7-25); BUN/CREATININE RATIO 31.7; CALCIUM SERUM 8.4 mg/dL (8.6-10.3); CHLORIDE 99 mEq/L (98-107); CREATININE - SERUM 0.6 mg/dL (0.6-1.2); GLUCOSE 87 mg/dL (70-105); POTASSIUM SERUM 3.6 mEq/L (3.5-5.1); SODIUM SERUM 141 mEq/L (136-145)
[2017-03-27 06:51] LABS: CARBON DIOXIDE 40.4 mEq/L (21.0-31.0)
[2017-03-27] MEDS: Diltiazem 30 mg Tab PO SCH ×3 (06:57→17:19)
[2017-03-27] MEDS: Ipratropium Neb 0.5 mg/2.5 mL UD IH SCH ×4 (07:12→19:25)
[2017-03-27] MEDS: Albuterol Nebulizer 2.5mg/3mL HHN SCH ×4 (07:12→19:25)
[2017-03-27] MEDS: Potassium Chloride 20 mEq ER Tab PO SCH (08:48)
[2017-03-27] MEDS: Lactobacillus Rhamnosus 10 Billion CFU Capsule PO SCH (08:50)
[2017-03-27] MEDS ORDERED: Morphine Sulfate 4 mg/mL 1mL Syr IVP PRN (10:07)
[2017-03-27] MEDS: cefTRIAXone 1 GM in Sodium Chloride 0.9% 50 ML IV SCH (11:19)
--- NOTE | 2017-03-27 19:41 | Internal Medicine Prog Note ---
Internal Medicine Subjective - Subjective Service Date: 03/27/17 Patient seen and examined:: with staff Patient is:: awake, agitated, confused Per staff patient has:: no adverse event Internal Medicine Objective - Results Result Diagrams: 03/27/17 06:10 03/27/17 06:10 Recent Labs: Laboratory Last Values WBC 5.4 Th/cmm (4.8-10.8) 03/27/17 06:10 RBC 4.07 Mil/cmm (3.80-5.20) 03/27/17 06:10 Hgb 12.5 gm/dL (12-16) 03/27/17 06:10 Hct 37.9 % (41.0-60) L 03/27/17 06:10 MCV 93.2 fl (81-100) 03/27/17 06:10 MCH 30.8 pg (27.0-31.0) 03/27/17 06:10 MCHC Differential 33.1 pg (28.0-36.0) 03/27/17 06:10 RDW 15.4 % (11.5-20.0) 03/27/17 06:10 Plt Count 127 Th/cmm (150-400) L 03/27/17 06:10 MPV 8.7 fl 03/27/17 06:10 Neutrophils % 52.8 % (40.0-80.0) 03/27/17 06:10 Lymphocytes % 31.2 % (20.0-50.0) 03/27/17 06:10 Monocytes % 13.5 % (2.0-10.0) H 03/27/17 06:10 Eosinophils % 1.8 % (0.0-5.0) 03/27/17 06:10 Basophils % 0.7 % (0.0-2.0) 03/27/17 06:10 PT 12.1 SECONDS (9.5-11.5) H 03/24/17 15:03 INR 1.15 (0.5-1.4) 03/24/17 15:03 PTT (Actin FS) 22.7 SECONDS (26.0-38.0) L 03/24/17 15:03 Specimen Source Arterial 03/24/17 15:20 Sample Site Left Radial 03/24/17 15:20 pH 7.51 (7.35-7.45) H 03/24/17 15:20 pCO2 47.0 mmHg (35.0-45.0) H 03/24/17 15:20 pO2 69.0 mmHg (80.0-100.0) L 03/24/17 15:20 HCO3 34.9 mEq/L (20.0-26.0) H 03/24/17 15:20 Base Excess 12.8 mEq/L (-3.0-3.0) H 03/24/17 15:20 O2 Saturation 95.0 % (92.0-100.0) 03/24/17 15:20 Thanh Test YES 03/24/17 15:20 Vent Rate NA 03/24/17 15:20 Inspired O2 21 03/24/17 15:20 Tidal Volume NA 03/24/17 15:20 PEEP NA 03/24/17 15:20 Pressure (ins/psv/peep) NA 03/24/17 15:20 Critical Value E.[place]PT[place] 03/24/17 15:20 Sodium 141 mEq/L (136-145) 03/27/17 06:10 Potassium 3.6 mEq/L (3.5-5.1) 03/27/17 06:10 Chloride 99 mEq/L (98-107) 03/27/17 06:10 Carbon Dioxide 40.4 mEq/L (21.0-31.0) H 03/27/17 06:10 Anion Gap 5.2 (7.0-16.0) L 03/27/17 06:10 BUN 19 mg/dL (7-25) 03/27/17 06:10 Creatinine 0.6 mg/dL (0.6-1.2) 03/27/17 06:10 Est GFR ( Amer) TNP 03/27/17 06:10 Est GFR (Non-Af Amer) TNP 03/27/17 06:10 BUN/Creatinine Ratio 31.7 03/27/17 06:10 Glucose 87 mg/dL (70-105) 03/27/17 06:10 Hemoglobin A1c % 7.0 % (4.0-6.0) H 03/24/17 15:03 Calcium 8.4 mg/dL (8.6-10.3) L 03/27/17 06:10 Magnesium 1.8 mg/dL (1.9-2.7) L 03/25/17 04:27 Total Bilirubin 0.7 mg/dL (0.3-1.0) 03/24/17 15:09 AST 14 U/L (13-39) 03/24/17 15:09 ALT 11 U/L (7-52) 03/24/17 15:09 Alkaline Phosphatase 60 U/L (34-104) 03/24/17 15:09 Ammonia 42 umol/L (16-53) 03/25/17 04:27 Troponin I 0.04 ng/mL (0.01-0.05) 03/24/17 15:09 B-Natriuretic Peptide 257.0 pg/mL (5.0-100.0) H 03/27/17 06:10 Total Protein 6.2 gm/dL (6.0-8.3) 03/24/17 15:09 Albumin 3.8 gm/dL (3.7-5.3) 03/24/17 15:09 Globulin 2.4 gm/dL 03/24/17 15:09 Albumin/Globulin Ratio 1.6 (1.0-1.8) 03/24/17 15:09 Triglycerides 59 mg/dL (<150) 03/26/17 05:00 Cholesterol 113 mg/dL (<200) 03/26/17 05:00 LDL Cholesterol Direct 69 mg/dL (75-193) L 03/26/17 05:00 HDL Cholesterol 47 mg/dL (23-92) 03/26/17 05:00 TSH 5.07 uIU/ml (0.34-5.60) 03/24/17 15:09 Urine Source CLEAN C 03/24/17 16:15 Urine Color YELLOW 03/24/17 16:15 Urine Clarity CLOUDY (CLEAR) H 03/24/17 16:15 Urine pH 7.0 (4.6 - 8.0) 03/24/17 16:15 Ur Specific [place] 1.015 (1.005-1.030) 03/24/17 16:15 Urine Protein TRACE mg/dL (NEGATIVE) 03/24/17 16:15 Urine Glucose (UA) NEGATIVE mg/dL (NEGATIVE) 03/24/17 16:15 Urine Ketones NEGATIVE mg/dL (NEGATIVE) 03/24/17 16:15 Urine Blood TRACE (NEGATIVE) 03/24/17 16:15 Urine Nitrate POSITIVE (NEGATIVE) H 03/24/17 16:15 Urine Bilirubin NEGATIVE (NEGATIVE) 03/24/17 16:15 Urine Urobilinogen 1.0 E.U./dL (0.2 - 1.0) 03/24/17 16:15 Ur Leukocyte Esterase MODERATE (NEGATIVE) H 03/24/17 16:15 Urine RBC 2-5 /hpf (0-5) 03/24/17 16:15 Urine WBC 6-10 /hpf (0-5) H 03/24/17 16:15 Ur Epithelial Cells FEW /lpf (FEW) 03/24/17 16:15 Amorphous Sediment MODERATE URATES (NONE SEEN) 03/24/17 16:15 Urine Bacteria MANY /hpf (NONE SEEN) 03/24/17 16:15 Valproic Acid 64.6 ug/mL (50.0-100.0) 03/24/17 15:09 RPR NONREACTIVE (NONREACTIVE) 03/24/17 15:09 - Physical Exam Vitals and I&O: Vital Signs Temp 96.7 F 03/27/17 15:27 Pulse 111 03/27/17 19:28 Resp 18 03/27/17 19:28 BP 109/54 03/27/17 15:27 Pulse Ox 94 03/27/17 19:28 Intake & Output 03/27/17 03/27/17 03/28/17 06:59 18:59 06:59 Intake Total 150 Output Total 450 Balance -300 Weight (lbs) 183 lb Intake: Oral 150 Output: Urine 450 Active Medications: Current Medications Acetaminophen (Tylenol) 650 mg PO Q4HR PRN PRN Reason: Pain (Mild) Stop: 05/23/17 16:40 Last Admin: 03/25/17 20:38 Dose: 650 mg Acetaminophen/Hydrocodone Bitart ([place] 5mg/325mg) 1 tab PO TID PRN PRN Reason: Pain (Moderate) Stop: 05/23/17 16:40 Last Admin: 03/25/17 01:22 Dose: 1 tab Albuterol Sulfate (Albuterol 2.5mg/3ml Neb Ud) 2.5 mg HHN QIDRT [facility] Stop: 05/23/17 18:59 Last Admin: 03/27/17 19:25 Dose: 2.5 mg Aspirin (Ecotrin) 81 mg PO DAILY [facility] Stop: 05/24/17 08:59 Last Admin: 03/27/17 08:51 Dose: 81 mg Diltiazem HCl (Cardizem) 10 mg IVP Q4H PRN PRN Reason: HR Greater than 130 per min Stop: 05/23/17 16:41 Last Admin: 03/26/17 16:48 Dose: 10 mg Diltiazem HCl (Cardizem) 30 mg PO Q6HR [facility] Stop: 05/25/17 17:59 Last Admin: 03/27/17 17:19 Dose: 30 mg Furosemide (Lasix) 40 mg IVP DAILY [facility] Stop: 05/25/17 08:59 Last Admin: 03/27/17 08:51 Dose: 40 mg Haloperidol (Haldol) 2 mg PO Q6HR PRN; Protocol PRN Reason: Agitation Stop: 05/23/17 16:40 Last Admin: 03/27/17 17:03 Dose: 2 mg Ceftriaxone Sodium 1 gm/ (Sodium Chloride) 50 mls @ 100 mls/hr IV Q24HR [facility] Stop: 05/24/17 11:29 Last Admin: 03/27/17 11:19 Dose: 100 mls/hr Ipratropium [place] (Atrovent Neb 0.5mg/2.5ml) 0.5 mg IH QIDRT [facility] Stop: 05/23/17 18:59 Last Admin: 03/27/17 19:25 Dose: 0.5 mg Lactobacillus Rhamnosus (Culturelle) 1 each PO DAILY [facility] Stop: 05/26/17 08:59 Last Admin: 03/27/17 08:50 Dose: 1 each Miscellaneous (Probiotic Screen) 1 ea MC PRN PRN PRN Reason: PROTOCOL Stop: 05/25/17 13:14 Morphine Sulfate (Morphine) 2 mg IVP Q4H PRN PRN Reason: Severe Pain Stop: 05/26/17 10:06 Ondansetron HCl (Zofran) 4 mg IV Q8H PRN PRN Reason: Nausea / Vomiting Stop: 05/23/17 16:41 Potassium Chloride (Klor-Con) 20 meq PO DAILY [facility] Stop: 05/24/17 08:59 Last Admin: 03/27/17 08:48 Dose: 20 meq Quetiapine Fumarate (Seroquel) 25 mg PO BID [facility] PRN Reason: Protocol Stop: 05/24/17 08:59 Last Admin: 03/27/17 17:01 Dose: 25 mg Rivaroxaban (Xarelto) 15 mg PO BID [facility] Stop: 05/26/17 08:59 Last Admin: 03/27/17 17:01 Dose: 15 mg Senna (Senna) 8.6 mg PO BID [facility] Stop: 05/23/17 16:59 Last Admin: 03/27/17 17:00 Dose: 8.6 mg Valproate Sodium (Depakene) 250 mg PO TID [facility] Stop: 05/23/17 20:59 Last Admin: 03/27/17 13:57 Dose: 250 mg General: alert HEENT: NC/AT, PERRLA Neck: Supple Lungs: CTAB Cardiovascular: RRR, without murmur Abdomen: soft, non-tender, non-distended, positive bowel sound Internal Medicine Assmt/Plan - Assessment Assessment: RIGHT LOWER EXTREMITY DVT ACUTE CHF EXACERBATION DEMENTIA HTN HYPOMAGNESEMIA A-FIB WITH RAPID VENTRICULAR RESPONSE ACUTE UTI HX COLON CA - Plan Plan: CONTINUE WITH HEPARIN LTAC EVAL ICU MONITORING DIURESE AM LABS CARDIO F/U CONTINUE CURRENT TREATMENT
[2017-03-28] MEDS: Diltiazem 30 mg Tab PO SCH ×5 (00:18→18:46)
[2017-03-28] MEDS: Diltiazem 5 mg/mL 5mL Vial IVP PRN (01:48)
[2017-03-28 05:29] LABS: % BASOPHILS 0.3 % (0.0-2.0); % EOSINOPHILS 0.4 % (0.0-5.0); % LYMPHOCYTES 29.1 % (20.0-50.0); % MONOCYTES 13.3 % (2.0-10.0); % NEUTROPHILS 56.9 % (40.0-80.0); HEMATOCRIT 37.3 % (41.0-60); HEMOGLOBIN 12.4 gm/dL (12-16); MEAN CORPUSCULAR HEMOGLOBIN 31.2 pg (27.0-31.0); MEAN CORPUSCULAR HGB CONC 33.2 pg (28.0-36.0); MEAN PLATELET VOLUME 8.9 fl; NEUTROPHILE ABSOLUTE 3.6 Th/cmm (1.8-8.0); PLATELET COUNT 127 Th/cmm (150-400); RED BLOOD COUNT 3.97 Mil/cmm (3.80-5.20); RED CELL DISTRIBUTION WIDTH 15.2 % (11.5-20.0); WHITE BLOOD COUNT 6.2 Th/cmm (4.8-10.8)
[2017-03-28 05:59] LABS: ANION GAP 4.8 (7.0-16.0); BUN - UREA NITROGEN 16 mg/dL (7-25); CALCIUM SERUM 8.3 mg/dL (8.6-10.3); CARBON DIOXIDE 37.9 mEq/L (21.0-31.0); CHLORIDE 98 mEq/L (98-107); CREATININE - SERUM 0.5 mg/dL (0.6-1.2); GLUCOSE 127 mg/dL (70-105); POTASSIUM SERUM 3.7 mEq/L (3.5-5.1); SODIUM SERUM 137 mEq/L (136-145)
[2017-03-28 06:14] LABS: FOLIC ACID 6.5 ng/mL (>3.0)
[2017-03-28] MEDS: Albuterol Nebulizer 2.5mg/3mL HHN SCH ×3 (07:17→14:21)
[2017-03-28] MEDS: Ipratropium Neb 0.5 mg/2.5 mL UD IH SCH ×3 (07:17→14:21)
--- NOTE | 2017-03-28 07:55 | Progress Notes ---
DATE: 03/28/2017 SUBJECTIVE: Chart reviewed and the patient interviewed. Also discussed the patient's condition with the staff and reviewed records and labs. The patient was extremely irritable and extremely agitated yesterday and the patient had to take Ativan to calm her down. The patient was calmer for a short time, but she is still agitated and she is still in irritable mood. The patient also taking Seroquel in a dose of 25 mg twice a day as she is still agitated and she is still irritable. The patient also is interacting minimally with others. She is not able questions because of her agitation and her irritability. ASSESSMENT: The patient is still psychotic. TREATMENT PLAN: We will continue monitoring her behavior and her condition closely. Also, we will work on her psychosis and agitation. Also, we will increase Seroquel to 25 mg 3 times a day and continue Ativan on a p.r.n. basis. Depakote blood level that was done on 03/24/2017 came back to be 64.6 which is within therapeutic level. JOB# [id number]
[2017-03-28] MEDS: Lactobacillus Rhamnosus 10 Billion CFU Capsule PO SCH (09:31)
[2017-03-28] MEDS: Potassium Chloride 20 mEq ER Tab PO SCH (09:31)
--- NOTE | 2017-03-28 10:00 | Consultation ---
DATE OF CONSULTATION: 03/26/2017 HISTORY OF PRESENT ILLNESS: An 87-year-old female with history of dementia, likely now delirious. Still scratching at times, irritable, trying to get out of bed. Staff noting some mild improvement with medication adjustments. I did speak with the daughter, who was at bedside, her name is Chelsey. She notes that the patient has had bouts of irritability and agitation in the past, was put on Depakote, as well as Zyprexa, but had been refusing her medications. I do answer her questions. The patient is sleeping at this time, still confused, disoriented. ASSESSMENT: The patient remains symptomatic, still disoriented, confused, still with confusional episodes and behaviors. PLAN: Mild improvement noted. We will continue medications at current dose. Recommend treating underlying medical problems. Avoid anticholinergics, avoid benzodiazepines, avoid opiates. Recommend daughter visit and continue to orient the patient. JOB# [id number]
[2017-03-28] MEDS: cefTRIAXone 1 GM in Sodium Chloride 0.9% 50 ML IV SCH (12:05)
--- NOTE | 2017-03-28 13:07 | Internal Medicine Prog Note ---
Internal Medicine Subjective - Subjective Patient seen and examined:: with staff, chart reviewed, other (daughter at bedside) Patient is:: awake, verbal, interactive, agitated, confused Per staff patient has:: no adverse event, poor appetite, unstable gait, agitated , tolerating meds Internal Medicine Objective - Results Result Diagrams: 03/28/17 05:05 03/28/17 05:05 Recent Labs: Laboratory Last Values WBC 6.2 Th/cmm (4.8-10.8) 03/28/17 05:05 RBC 3.97 Mil/cmm (3.80-5.20) 03/28/17 05:05 Hgb 12.4 gm/dL (12-16) 03/28/17 05:05 Hct 37.3 % (41.0-60) L 03/28/17 05:05 MCV 94.0 fl (81-100) 03/28/17 05:05 MCH 31.2 pg (27.0-31.0) H 03/28/17 05:05 MCHC Differential 33.2 pg (28.0-36.0) 03/28/17 05:05 RDW 15.2 % (11.5-20.0) 03/28/17 05:05 Plt Count 127 Th/cmm (150-400) L 03/28/17 05:05 MPV 8.9 fl 03/28/17 05:05 Neutrophils % 56.9 % (40.0-80.0) 03/28/17 05:05 Lymphocytes % 29.1 % (20.0-50.0) 03/28/17 05:05 Monocytes % 13.3 % (2.0-10.0) H 03/28/17 05:05 Eosinophils % 0.4 % (0.0-5.0) 03/28/17 05:05 Basophils % 0.3 % (0.0-2.0) 03/28/17 05:05 PT 12.1 SECONDS (9.5-11.5) H 03/24/17 15:03 INR 1.15 (0.5-1.4) 03/24/17 15:03 PTT (Actin FS) 22.7 SECONDS (26.0-38.0) L 03/24/17 15:03 Specimen Source Arterial 03/24/17 15:20 Sample Site Left Radial 03/24/17 15:20 pH 7.51 (7.35-7.45) H 03/24/17 15:20 pCO2 47.0 mmHg (35.0-45.0) H 03/24/17 15:20 pO2 69.0 mmHg (80.0-100.0) L 03/24/17 15:20 HCO3 34.9 mEq/L (20.0-26.0) H 03/24/17 15:20 Base Excess 12.8 mEq/L (-3.0-3.0) H 03/24/17 15:20 O2 Saturation 95.0 % (92.0-100.0) 03/24/17 15:20 Thanh Test YES 03/24/17 15:20 Vent Rate NA 03/24/17 15:20 Inspired O2 21 03/24/17 15:20 Tidal Volume NA 03/24/17 15:20 PEEP NA 03/24/17 15:20 Pressure (ins/psv/peep) NA 03/24/17 15:20 Critical Value E.[place] 03/24/17 15:20 Sodium 137 mEq/L (136-145) 03/28/17 05:05 Potassium 3.7 mEq/L (3.5-5.1) 03/28/17 05:05 Chloride 98 mEq/L (98-107) 03/28/17 05:05 Carbon Dioxide 37.9 mEq/L (21.0-31.0) H 03/28/17 05:05 Anion Gap 4.8 (7.0-16.0) L 03/28/17 05:05 BUN 16 mg/dL (7-25) 03/28/17 05:05 Creatinine 0.5 mg/dL (0.6-1.2) L 03/28/17 05:05 Est GFR ( Amer) TNP 03/28/17 05:05 Est GFR (Non-Af Amer) TNP 03/28/17 05:05 BUN/Creatinine Ratio 32.0 03/28/17 05:05 Glucose 127 mg/dL (70-105) H 03/28/17 05:05 Hemoglobin A1c % 7.0 % (4.0-6.0) H 03/24/17 15:03 Calcium 8.3 mg/dL (8.6-10.3) L 03/28/17 05:05 Magnesium 1.8 mg/dL (1.9-2.7) L 03/25/17 04:27 Total Bilirubin 0.7 mg/dL (0.3-1.0) 03/24/17 15:09 AST 14 U/L (13-39) 03/24/17 15:09 ALT 11 U/L (7-52) 03/24/17 15:09 Alkaline Phosphatase 60 U/L (34-104) 03/24/17 15:09 Ammonia 42 umol/L (16-53) 03/25/17 04:27 Troponin I 0.04 ng/mL (0.01-0.05) 03/24/17 15:09 B-Natriuretic Peptide 257.0 pg/mL (5.0-100.0) H 03/27/17 06:10 Total Protein 6.2 gm/dL (6.0-8.3) 03/24/17 15:09 Albumin 3.8 gm/dL (3.7-5.3) 03/24/17 15:09 Globulin 2.4 gm/dL 03/24/17 15:09 Albumin/Globulin Ratio 1.6 (1.0-1.8) 03/24/17 15:09 Triglycerides 59 mg/dL (<150) 03/26/17 05:00 Cholesterol 113 mg/dL (<200) 03/26/17 05:00 LDL Cholesterol Direct 69 mg/dL (75-193) L 03/26/17 05:00 HDL Cholesterol 47 mg/dL (23-92) 03/26/17 05:00 Vitamin B12 796 pg/mL (211-946) 03/25/17 04:27 Folic Acid 6.5 ng/mL (>3.0) 03/25/17 04:27 TSH 5.07 uIU/ml (0.34-5.60) 03/24/17 15:09 Urine Source CLEAN C 03/24/17 16:15 Urine Color YELLOW 03/24/17 16:15 Urine Clarity CLOUDY (CLEAR) H 03/24/17 16:15 Urine pH 7.0 (4.6 - 8.0) 03/24/17 16:15 Ur Specific [place] 1.015 (1.005-1.030) 03/24/17 16:15 Urine Protein TRACE mg/dL (NEGATIVE) 03/24/17 16:15 Urine Glucose (UA) NEGATIVE mg/dL (NEGATIVE) 03/24/17 16:15 Urine Ketones NEGATIVE mg/dL (NEGATIVE) 03/24/17 16:15 Urine Blood TRACE (NEGATIVE) 03/24/17 16:15 Urine Nitrate POSITIVE (NEGATIVE) H 03/24/17 16:15 Urine Bilirubin NEGATIVE (NEGATIVE) 03/24/17 16:15 Urine Urobilinogen 1.0 E.U./dL (0.2 - 1.0) 03/24/17 16:15 Ur Leukocyte Esterase MODERATE (NEGATIVE) H 03/24/17 16:15 Urine RBC 2-5 /hpf (0-5) 03/24/17 16:15 Urine WBC 6-10 /hpf (0-5) H 03/24/17 16:15 Ur Epithelial Cells FEW /lpf (FEW) 03/24/17 16:15 Amorphous Sediment MODERATE URATES (NONE SEEN) 03/24/17 16:15 Urine Bacteria MANY /hpf (NONE SEEN) 03/24/17 16:15 Valproic Acid 64.6 ug/mL (50.0-100.0) 03/24/17 15:09 RPR NONREACTIVE (NONREACTIVE) 03/24/17 15:09 - Physical Exam Vitals and I&O: Vital Signs Temp 98.2 F 03/28/17 08:00 Pulse 83 03/28/17 11:29 Resp 20 03/28/17 11:39 BP 113/60 03/28/17 09:31 Pulse Ox 94 03/28/17 11:29 Intake & Output 03/27/17 03/28/17 03/28/17 18:59 06:59 18:59 Intake Total 50 250 Output Total 400 400 Balance 50 -400 -150 Weight (lbs) 95.453 kg 83.37 kg Intake: Intake, IV Amount 50 cefTRIAXone 1 gm In 50 Sodium Chloride 0.9% 50 ml @ 100 mls/hr IV Q24HR [facility]JIT Rx#:[id number] Oral 250 Output: Urine 400 400 Other: # Bowel Movements 0 0 Active Medications: Current Medications Acetaminophen (Tylenol) 650 mg PO Q4HR PRN PRN Reason: Pain (Mild) Stop: 05/23/17 16:40 Last Admin: 03/25/17 20:38 Dose: 650 mg Acetaminophen/Hydrocodone Bitart ([place] 5mg/325mg) 1 tab PO TID PRN PRN Reason: Pain (Moderate) Stop: 05/23/17 16:40 Last Admin: 03/25/17 01:22 Dose: 1 tab Albuterol Sulfate (Albuterol 2.5mg/3ml Neb Ud) 2.5 mg HHN QIDRT BALJIT Stop: 05/23/17 18:59 Last Admin: 03/28/17 11:25 Dose: 2.5 mg Aspirin (Ecotrin) 81 mg PO DAILY [facility] Stop: 05/24/17 08:59 Last Admin: 03/28/17 09:31 Dose: 81 mg Ciprofloxacin (Cipro) 250 mg PO BID [facility] Stop: 05/27/17 16:59 Diltiazem HCl (Cardizem) 10 mg IVP Q4H PRN PRN Reason: HR Greater than 130 per min Stop: 05/23/17 16:41 Last Admin: 03/28/17 01:48 Dose: 10 mg Diltiazem HCl (Cardizem) 30 mg PO Q6HR [facility]IJT Stop: 05/25/17 17:59 Last Admin: 03/28/17 06:37 Dose: 30 mg Furosemide (Lasix) 40 mg PO DAILY [facility] Stop: 05/28/17 08:59 Haloperidol (Haldol) 2 mg PO Q6HR PRN; Protocol PRN Reason: Agitation Stop: 05/23/17 16:40 Last Admin: 03/27/17 17:03 Dose: 2 mg Ipratropium [place] (Atrovent Neb 0.5mg/2.5ml) 0.5 mg IH QIDRT BALJIT Stop: 05/23/17 18:59 Last Admin: 03/28/17 11:25 Dose: 0.5 mg Lactobacillus Rhamnosus (Culturelle) 1 each PO DAILY [facility] Stop: 05/26/17 08:59 Last Admin: 03/28/17 09:31 Dose: 1 each Lorazepam (Ativan) 0.5 mg PO Q8HR PRN; Protocol PRN Reason: Agitation Stop: 05/26/17 22:45 Last Admin: 03/27/17 23:18 Dose: 0.5 mg Miscellaneous (Probiotic Screen) 1 ea MC PRN PRN PRN Reason: PROTOCOL Stop: 05/25/17 13:14 Ondansetron HCl (Zofran) 4 mg IV Q8H PRN PRN Reason: Nausea / Vomiting Stop: 05/23/17 16:41 Potassium Chloride (Klor-Con) 20 meq PO DAILY [facility] Stop: 05/24/17 08:59 Last Admin: 03/28/17 09:31 Dose: 20 meq Quetiapine Fumarate (Seroquel) 25 mg PO TID [facility] PRN Reason: Protocol Stop: 05/27/17 08:59 Last Admin: 03/28/17 09:58 Dose: Not Given Rivaroxaban (Xarelto) 15 mg PO BID [facility] Stop: 05/26/17 08:59 Last Admin: 03/28/17 10:22 Dose: 15 mg Senna (Senna) 8.6 mg PO BID [facility] Stop: 05/23/17 16:59 Last Admin: 03/28/17 09:30 Dose: 8.6 mg Valproate Sodium (Depakene) 250 mg PO TID [facility] Stop: 05/23/17 20:59 Last Admin: 03/28/17 09:54 Dose: 250 mg General: alert HEENT: NC/AT, PERRLA Neck: Supple Lungs: CTAB Cardiovascular: RRR, with murmur Abdomen: soft, non-tender, thin, non-distended, positive bowel sound Extremities: excoriation, contracture, deformity Neurological: no change, lethargic, unsteady, bedbound Internal Medicine Assmt/Plan - Assessment Assessment: RIGHT LOWER EXTREMITY DVT ACUTE CHF EXACERBATION DEMENTIA, sad HTN HYPOMAGNESEMIA A-FIB WITH RAPID VENTRICULAR RESPONSE ACUTE UTI HX COLON CA - Plan Plan: cont on blood thinner on xarelto cont on abx dw daughter at bedside, refused ltac may consider bonita horton rn
== END 2017-03-28 18:30 | DRG 299 ==
LOC: ER 14:52 → ICU 15:50 → TELE 03-27 18:39 → MSI 03-28 09:30 → TELE 03-28 10:40
PROVIDERS: ADMIT Internal Medicine; ATTEND Internal Medicine
DX: I82.411 Acute embolism and thrombosis of right femoral vein (principal); I50.23 Acute on chronic systolic (congestive) heart failure; I42.9 Cardiomyopathy, unspecified; F03.90 Unspecified dementia, unspecified severity, without behavioral disturbance, psychotic disturbance, mood disturbance, and anxiety; E83.42 Hypomagnesemia; N39.0 Urinary tract infection, site not specified; I11.0 Hypertensive heart disease with heart failure; I48.91 Unspecified atrial fibrillation; E11.9 Type 2 diabetes mellitus without complications; Z66 Do not resuscitate; F29 Unspecified psychosis not due to a substance or known physiological condition; F41.9 Anxiety disorder, unspecified; F39 Unspecified mood [affective] disorder; I25.10 Atherosclerotic heart disease of native coronary artery without angina pectoris; Z86.718 Personal history of other venous thrombosis and embolism; Z90.710 Acquired absence of both cervix and uterus; Z90.49 Acquired absence of other specified parts of digestive tract; Z85.038 Personal history of other malignant neoplasm of large intestine
CPT/HCPCS: 36415-UA; 36600-90; 71010-TC; 80048-TC; 80053-TC; 80061-TC; 80164-TC; 81001-TC; 82140-TC; 82607-90; 82746-90; 82803-TC; 83036-90; 83735-TC; 83880-TC; 84443-TC; 84484-TC; 85025-TC; 85610-TC; 85730-TC; 86592-TC; 90779; 93005; 93970-TC-50; 94640; 94760; 96374; 96375; J0696; J1644; J1940; J2270; J3475; J7030; J7613; Z7610